=== PATIENT | female | born 1950 | race Caucasian/White ===

== ENCOUNTER 2019-03-17 18:21 | Observation (INO) | payer MEDICARE, BC ==
[2019-03-17] MEDS ORDERED: Sodium Chloride 0.9% 2.5 ML Syringe FLUSH PRN (18:44)
[2019-03-17] MEDS ORDERED: Sodium Chloride 0.9% 10 ML Syringe FLUSH PRN (18:44)
[2019-03-17] MEDS ORDERED: Sodium Chloride 0.9% 10 ML SDV IV PRN (18:44)
--- NOTE | 2019-03-17 19:07 | CT ---
INDICATION: NUMBNESS TO LEFT ARM CT HEAD WITHOUT CONTRAST TECHNIQUE: Multiple axial CT images were performed through the head without intravenous contrast administration. COMPARISON: No previous studies are currently available for comparison. FINDINGS: No acute intracranial hemorrhage is identified. No extra-axial collections are evident and there is no mass effect or midline shift. There is mild diffuse age-related brain atrophy. Ventricular size and configuration are within normal limits for the patient`s age. Rodrigues-white differentiation is within normal limits. There is patchy hypodensity in the periventricular white matter, a nonspecific finding which most likely reflects chronic small vessel ischemic change. Osseous structures are within normal limits and no fractures are seen. Included portions of the paranasal sinuses and mastoid air cells are normally aerated. IMPRESSION: 1. No acute intracranial abnormality identified. 2. Mild age-related brain atrophy and white matter hypodensity consistent with chronic small vessel ischemic change. Report called to Dr. Masterson at 6:57pm 03/17/2019. VALERIE YANCEY MD [facility] Dictated by: Leonel Yancey MD @ 03/17/2019 19:04:34 (Electronically Signed)
[2019-03-17 19:10] LABS: CHLORIDE,CL 104 mmol/L (98-107); SODIUM,NA 141 mmol/L (136-145)
--- NOTE | 2019-03-17 19:22 | EDM.PDOC ---
ED HPI GENERAL MEDICAL PROBLEM - General Chief Complaint: Neuro Symptoms/Deficits Stated Complaint: HARD TO BREATH Time Seen by Provider: 03/17/19 18:37 Source of Information: Reports: Patient, Family History Limitations: Reports: No Limitations - History of Present Illness INITIAL COMMENTS - FREE TEXT/NARRATIVE: HISTORY AND PHYSICAL: History of present illness: Patient is a 68-year-old female presents to the ED today with her daughter for concern of an episode of slurred speech and right arm tingling that occurred at about 5:30 this evening. Daughter states that she was talking to her and she began to slur her sentences. Patient states she was aware she was slurring her sentences but felt like she couldn't control it. Patient states she then felt felt a tingling down her right arm. Patient states she came to the emergency room shortly after the symptoms. Patient states while in the emergency room, her symptoms have completely resolved. She states at this time she no longer is experiencing tingling or numbness or any symptoms to express. Patient states she has a history of type 2 diabetes but denies any other health history. She denies any coronary artery event or any prior stroke. Last known time well was 1700. Patient denies fever, chills, chest pain, shortness of breath, or cough. Denies headache, neck stiff ness, change in vision, syncope, or near syncope. Denies nausea, vomiting, abdominal pain, diarrhea, constipation, or dysuria. Has not noted any blood in urine or stool. Patient has been eating and drinking appropriately. Review of systems: As per history of present illness and below otherwise all systems reviewed and negative. Past medical history: As per history of present illness and as reviewed below otherwise noncontributory. Surgical history: As per history of present illness and as reviewed below otherwise noncontributory. Social history: See social history for further information Family history: As per history of present illness and as reviewed below otherwise noncontributory. Physical exam: General: Patient is alert, oriented, and in no acute distress. Patient sitting comfortably on exam table. Patient is speaking full sentences without deficits. HEENT: Atraumatic, normocephalic, pupils equal and reactive bilaterally, negative for conjunctival pallor or scleral icterus, mucous membranes moist, TMs normal bilaterally, throat clear, neck supple, nontender, trachea midline. No drooling or trismus noted. No meningeal signs. No hot potato voice noted. Lungs: Clear to auscultation, breath sounds equal bilaterally, chest nontender. Heart: S1S2, regular rate and rhythm without overt murmur Abdomen: Soft, nondistended, nontender. Negative for masses or hepatosplenomegaly. Negative for costovertebral tenderness. Pelvis: Stable nontender. Genitourinary: Deferred. Rectal: Deferred. Skin: Intact, warm, dry. No lesions or rashes noted. Extremities: Atraumatic, negative for cords or calf pain. Neurovascular unremarkable. Neuro: Awake, alert, oriented. Cranial nerves II through XII unremarkable. Cerebellum unremarkable. Motor and sensory unremarkable throughout. Exam nonfocal. Notes: Stroke code was called upon arrival to the ED and Dr. Cerda involved in patient care. GCS 15. NIH score of 0. Dr. Simons was contacted on patient and will admit to observation. Voices understanding and is agreeable to plan of care. Denies any further questions or concerns at this time. Diagnostics: Head CT, CBC, CMP, PT/INR, APTT, UA, EKG Therapeutics: Saline lock Impression: TIA Plan: 1. Admit to observation to Dr. Simons. Definitive disposition and diagnosis as appropriate pending reevaluation and review of above. headache Pain Score (Numeric/FACES): 6 - Related Data Allergies Allergy/AdvReac Type Severity Reaction Status Date / Time rosuvastatin [From Crestor] Allergy Muscle Verified 03/17/19 18:52 Aches Sulfa (Sulfonamide Allergy pain in Verified 03/17/19 18:52 Antibiotics) lower extremities Home Meds: Home Meds DULoxetine HCl [Duloxetine HCl] 60 mg PO BID 09/22/18 [History] Levothyroxine Sodium [Synthroid] 75 mcg PO DAILY 09/22/18 [History] Losartan Potassium 50 mg PO DAILY 09/22/18 [History] Simvastatin [Zocor] 40 mg PO BEDTIME 09/22/18 [History] glipiZIDE [Glipizide ER] 5 mg PO DAILY 09/22/18 [History] metFORMIN HCl [Metformin HCl] 1,000 mg PO BID 09/22/18 [History] Doxycycline [Vibramycin] 100 mg PO BID 03/17/19 [History] Past Medical History HEENT History: Reports: Other (See Below) Other HEENT History: wears reading glasses Cardiovascular History: Reports: High Cholesterol, Hypertension Gastrointestinal History: Reports: Colon Polyp, GERD Other Gastrointestinal History: reflux in the past Genitourinary History: Reports: None 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: Musculoskeletal History: Reports: Arthritis, Back Pain, Chronic Neurological History: Reports: None Psychiatric History: Reports: Depression Endocrine/Metabolic History: Reports: Diabetes, Type II, Hypothyroidism, Obesity /BMI 30+ Oncologic (Cancer) History: Reports: Uterine - Infectious Disease History Infectious Disease History: Reports: Chicken Pox, Measles, Mumps - Past Surgical History Head Surgeries/Procedures: Reports: None HEENT Surgical History: Reports: Tonsillectomy Cardiovascular Surgical History: Reports: None GI Surgical History: Reports: Appendectomy, Cholecystectomy, Colonoscopy Female Surgical History: Reports: Hysterectomy, Salpingo-Oophorectomy Other Female Surgeries/Procedures: total abd hysterectomy with lymph node disection, uterine ca 2013 Endocrine Surgical History: Reports: None Neurological Surgical History: Reports: Lumbar Spine Other Neurological Surgeries/Procedures: hx back surgery Musculoskeletal Surgical History: Reports: Other (See Below) Other Musculoskeletal Surgeries/Procedures:: back surgery Social & Family History - Family History Family Medical History: Noncontributory - Tobacco Use Smoking Status *Q: Never Smoker Second Hand Smoke Exposure: No - Caffeine Use Caffeine Use: Reports: Soda - Recreational Drug Use Recreational Drug Use: No ED ROS GENERAL - Review of Systems Review Of Systems: ROS reveals no pertinent complaints other than HPI. ED EXAM, NEURO - Physical Exam Exam: See Below (See dictation) Course - Vital Signs Last Recorded V/S: Last Vital Signs Temp 35.9 C 03/17/19 18:46 Pulse 93 03/17/19 18:46 Resp 20 03/17/19 18:46 BP 162/93 H 03/17/19 18:46 Pulse Ox 95 03/17/19 18:46 - Orders/Labs/Meds Orders: Active Orders 24 hr Category Date Time Status Assess Neurological Status [RC] ASDIRECTED Care 03/17/19 18:44 Active Bedrest [RC] ASDIRECTED Care 03/17/19 18:44 Active Cardiac Monitoring [RC] . DIRECTED Care 03/17/19 18:44 Active EKG Documentation Completion [RC] STAT Care 03/17/19 18:41 Active EKG Documentation Completion [RC] STAT Care 03/17/19 18:44 Inactive EKG Documentation Completion [RC] STAT Care 03/17/19 18:46 Inactive Height and Weight [RC] UPON Care 03/17/19 18:44 Active Initiate Acute Stroke Protocol [RC] STAT Care 03/17/19 18:44 Active NIH Stroke Scale [RC] ASDIRECTED Care 03/17/19 18:44 Active Nursing Bedside Swallow Screen [RC] ASDIRECTED Care 03/17/19 18:44 Active Oxygen Therapy [RC] ASDIRECTED Care 03/17/19 18:44 Active Stroke Education, General [] Click to Edit Care 03/17/19 18:44 Active Vital Signs [RC] Q15M Care 03/17/19 18:44 Active UA W/MICROSCOPIC [URIN] Stat Lab 03/17/19 18:41 Ordered Sodium Chloride 0.9% [Normal Saline] Med 03/17/19 18:44 Active 10 ml IV ASDIRECTED PRN Sodium Chloride 0.9% [Saline Flush] Med 03/17/19 18:44 Active 10 ml FLUSH ASDIRECTED PRN Sodium Chloride 0.9% [Saline Flush] Med 03/17/19 18:44 Active 2.5 ml FLUSH ASDIRECTED PRN Peripheral IV Insertion Adult [OM.PC] Stat Oth 03/17/19 18:44 Ordered Peripheral IV Insertion Adult [OM.PC] Stat Oth 03/17/19 18:44 Ordered Medication Orders Sodium Chloride (Saline Flush) 10 ml FLUSH ASDIRECTED PRN PRN Reason: Keep Vein Open Sodium Chloride (Saline Flush) 2.5 ml FLUSH ASDIRECTED PRN PRN Reason: Keep Vein Open Sodium Chloride (Normal Saline) 10 ml IV ASDIRECTED PRN PRN Reason: IV Use Labs: Laboratory Tests 03/17/19 03/17/19 03/17/19 Range/Units 18:26 18:26 18:26 WBC 10.55 (4.0-11.0) K/uL RBC 4.95 (4.30-5.90) M/uL Hgb 15.7 (12.0-16.0) g/dL Hct 47.4 H (36.0-46.0) % MCV 95.8 (80.0-98.0) fL MCH 31.7 (27.0-32.0) pg MCHC 33.1 (31.0-37.0) g/dL RDW Std Deviation 45.6 (28.0-62.0) fl RDW Coeff of Justice 13 (11.0-15.0) % Plt Count 340 (150-400) K/uL MPV 10.30 (7.40-12.00) fL Neut % (Auto) 44.9 L (48.0-80.0) % Lymph % (Auto) 45.4 H (16.0-40.0) % Benzie % (Auto) 7.2 (0.0-15.0) % Eos % (Auto) 2.1 (0.0-7.0) % Baso % (Auto) 0.4 (0.0-1.5) % Neut # (Auto) 4.7 (1.4-5.7) K/uL Lymph # (Auto) 4.8 H (0.6-2.4) K/uL Benzie # (Auto) 0.8 (0.0-0.8) K/uL Eos # (Auto) 0.2 (0.0-0.7) K/uL Baso # (Auto) 0.0 (0.0-0.1) K/uL Nucleated RBC % 0.0 /100WBC Nucleated RBCs # 0 K/uL INR 0.93 APTT 25.4 (18.6-31.3) SEC Sodium 141 (136-145) mmol/L Potassium 3.5 (3.5-5.1) mmol/L Chloride 104 (98-107) mmol/L Carbon Dioxide 24.6 (21.0-32.0) mmol/L BUN 20 H (7.0-18.0) mg/dL Creatinine 1.2 H (0.6-1.0) mg/dL Est Cr Clr Drug Dosing 44.00 mL/min Estimated GFR (MDRD) 44.4 ml/min Glucose 104 (74-106) mg/dL Calcium 9.0 (8.5-10.1) mg/dL Total Bilirubin 0.9 (0.2-1.0) mg/dL AST 23 (15-37) IU/L ALT 30 (14-63) IU/L Alkaline Phosphatase 104 (46-116) U/L Troponin I < 0.050 (0.000-0.056) ng/mL Total Protein 7.6 (6.4-8.2) g/dL Albumin 3.8 (3.4-5.0) g/dL Globulin 3.8 (2.6-4.0) g/dL Albumin/Globulin Ratio 1.0 (0.9-1.6) TSH 3rd Generation 2.35 (0.36-3.74) uIU/mL Meds: Medications Generic Name Dose Route Start Last Admin Trade Name Freq PRN Reason Stop Dose Admin Sodium Chloride 10 ml 03/17/19 18:44 Saline Flush FLUSH ASDIRECTED PRN Keep Vein Open Sodium Chloride 2.5 ml 03/17/19 18:44 Saline Flush FLUSH ASDIRECTED PRN Keep Vein Open Sodium Chloride 10 ml 03/17/19 18:44 Normal Saline IV ASDIRECTED PRN IV Use Departure - Departure Time of Disposition: 19:22 Disposition: Refer to Observation Clinical Impression: TIA (transient ischemic attack) - Discharge Information
[2019-03-17] MEDS ORDERED: Ondansetron 4 MG/2 ML SDV IVPUSH ONE (19:34)
--- NOTE | 2019-03-17 22:59 | PCM.HP ---
H&P History of Present Illness - General Date of Service: 03/17/19 Admit Problem/Dx: Admission Diagnosis/Problem Admission Diagnosis/Problem TIA, Transient ischemic attack - History of Present Illness Initial Comments - Free Text/Narative: 68 yo female with pmh of DM and hypertension who presents to the ED with complain of right arm numbness and slurred speech. It occured arround 5:30. PAtient reports her arm felt puffy but she had no weakness. She reports she was able to speak but family members could not understand her. Once she got to the ED her symptoms resolved headache Pain Score (Numeric/FACES): 3 - Related Data Allergies/Adverse Reactions: Allergies Allergy/AdvReac Type Severity Reaction Status Date / Time rosuvastatin [From Crestor] Allergy Muscle Verified 03/17/19 18:52 Aches Sulfa (Sulfonamide Allergy pain in Verified 03/17/19 18:52 Antibiotics) lower extremities Home Medications: Home Meds DULoxetine HCl [Duloxetine HCl] 60 mg PO BID 09/22/18 [History] Levothyroxine Sodium [Synthroid] 75 mcg PO DAILY 09/22/18 [History] Losartan Potassium 50 mg PO DAILY 09/22/18 [History] Simvastatin [Zocor] 40 mg PO BEDTIME 09/22/18 [History] glipiZIDE [Glipizide ER] 5 mg PO DAILY 09/22/18 [History] metFORMIN HCl [Metformin HCl] 1,000 mg PO BID 09/22/18 [History] Doxycycline [Vibramycin] 100 mg PO BID 03/17/19 [History] Dulaglutide [Trulicity] 0.75 mg SQ WEEKLY 03/17/19 [History] Insulin Degludec [Tresiba] 24 unit SQ BEDTIME 03/17/19 [History] Aspirin 81 mg PO DAILY #30 tab.chew 03/18/19 [Rx] Past Medical History HEENT History: Reports: Other (See Below) Other HEENT History: wears reading glasses Cardiovascular History: Reports: High Cholesterol, Hypertension Gastrointestinal History: Reports: Colon Polyp, GERD Other Gastrointestinal History: reflux in the past Genitourinary History: Reports: None 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: Musculoskeletal History: Reports: Arthritis, Back Pain, Chronic Neurological History: Reports: None Psychiatric History: Reports: Depression Endocrine/Metabolic History: Reports: Diabetes, Type II, Hypothyroidism, Obesity /BMI 30+ Oncologic (Cancer) History: Reports: Uterine - Infectious Disease History Infectious Disease History: Reports: Chicken Pox, Measles, Mumps - Past Surgical History Head Surgeries/Procedures: Reports: None HEENT Surgical History: Reports: Tonsillectomy Cardiovascular Surgical History: Reports: None GI Surgical History: Reports: Appendectomy, Cholecystectomy, Colonoscopy Female Surgical History: Reports: Hysterectomy, Salpingo-Oophorectomy Other Female Surgeries/Procedures: total abd hysterectomy with lymph node disection, uterine ca 2013 Endocrine Surgical History: Reports: None Neurological Surgical History: Reports: Lumbar Spine Other Neurological Surgeries/Procedures: hx back surgery Musculoskeletal Surgical History: Reports: Other (See Below) Other Musculoskeletal Surgeries/Procedures:: back surgery Social & Family History - Family History Family Medical History: Noncontributory - Tobacco Use Smoking Status *Q: Never Smoker Second Hand Smoke Exposure: No - Caffeine Use Caffeine Use: Reports: Coffee - Recreational Drug Use Recreational Drug Use: No H&P Review of Systems - Review of Systems: Review Of Systems: ROS reveals no pertinent complaints other than HPI. Exam - Exam Exam: See Below - Vital Signs Vital Signs: Last Vital Signs Temp 36.3 C 03/17/19 19:50 Pulse 81 03/17/19 19:50 Resp 19 03/17/19 19:50 BP 189/90 H 03/17/19 19:50 Pulse Ox 96 03/17/19 19:50 Weight: 107.774 kg - Exam General: Alert, Oriented HEENT: Mucosa Moist & [place] Neck: Supple Lungs: Clear to Auscultation, Normal Respiratory Effort Cardiovascular: Regular Rate, Regular Rhythm GI/Abdominal Exam: Normal Bowel Sounds, Soft, Non-Tender, No Distention Extremities: Non-Tender, No Pedal Edema Skin: Warm, Dry, Intact Neurological: Cranial Nerves Intact, Reflexes Equal Bilateral, Strength Equal Bilateral, Normal Speech, Normal Tone, Sensation Intact. No: Focal Deficit - Patient Data Lab Results Last 24 hrs: Laboratory Results - last 24 hr 03/17/19 03/17/19 03/17/19 Range/Units 18:26 18:26 18:26 WBC 10.55 (4.0-11.0) K/uL RBC 4.95 (4.30-5.90) M/uL Hgb 15.7 (12.0-16.0) g/dL Hct 47.4 H (36.0-46.0) % MCV 95.8 (80.0-98.0) fL MCH 31.7 (27.0-32.0) pg MCHC 33.1 (31.0-37.0) g/dL RDW Std Deviation 45.6 (28.0-62.0) fl RDW Coeff of Justice 13 (11.0-15.0) % Plt Count 340 (150-400) K/uL MPV 10.30 (7.40-12.00) fL Neut % (Auto) 44.9 L (48.0-80.0) % Lymph % (Auto) 45.4 H (16.0-40.0) % Nobles % (Auto) 7.2 (0.0-15.0) % Eos % (Auto) 2.1 (0.0-7.0) % Baso % (Auto) 0.4 (0.0-1.5) % Neut # (Auto) 4.7 (1.4-5.7) K/uL Lymph # (Auto) 4.8 H (0.6-2.4) K/uL [place] # (Auto) 0.8 (0.0-0.8) K/uL Eos # (Auto) 0.2 (0.0-0.7) K/uL Baso # (Auto) 0.0 (0.0-0.1) K/uL Nucleated RBC % 0.0 /100WBC Nucleated RBCs # 0 K/uL INR 0.93 APTT 25.4 (18.6-31.3) SEC Sodium 141 (136-145) mmol/L Potassium 3.5 (3.5-5.1) mmol/L Chloride 104 (98-107) mmol/L Carbon Dioxide 24.6 (21.0-32.0) mmol/L BUN 20 H (7.0-18.0) mg/dL Creatinine 1.2 H (0.6-1.0) mg/dL Est Cr Clr Drug Dosing 44.00 mL/min Estimated GFR (MDRD) 44.4 ml/min Glucose 104 (74-106) mg/dL Calcium 9.0 (8.5-10.1) mg/dL Total Bilirubin 0.9 (0.2-1.0) mg/dL AST 23 (15-37) IU/L ALT 30 (14-63) IU/L Alkaline Phosphatase 104 (46-116) U/L Troponin I < 0.050 (0.000-0.056) ng/mL Total Protein 7.6 (6.4-8.2) g/dL Albumin 3.8 (3.4-5.0) g/dL Globulin 3.8 (2.6-4.0) g/dL Albumin/Globulin Ratio 1.0 (0.9-1.6) TSH 3rd Generation 2.35 (0.36-3.74) uIU/mL Result Diagrams: 03/17/19 18:26 03/17/19 18:26 Problem List Initiated/Reviewed/Updated: Yes Orders Last 24hrs: Active Orders 24 hr Category Date Time Status Admission Status [Patient Status] [ADT] Stat ADT 03/17/19 19:22 Active Blood Glucose Check, Bedside [RC] TIDAC Care 03/17/19 22:49 Ordered Cardiac Monitoring [RC] . DIRECTED Care 03/17/19 18:44 Active EKG Documentation Completion [RC] STAT Care 03/17/19 18:44 Inactive EKG Documentation Completion [RC] STAT Care 03/17/19 18:46 Inactive Oxygen Therapy [RC] PRN Care 03/17/19 22:46 Ordered Up ad Vandana [RC] ASDIRECTED Care 03/17/19 22:46 Ordered VTE/DVT Education [RC] PER UNIT ROUTINE Care 03/17/19 22:46 Ordered Vital Signs [RC] Q4H Care 03/17/19 22:46 Ordered [place] [employer] Diet [DIET] Diet 03/17/19 Breakfast Ordered Ang Head wo Cont [MR] Routine Exams 03/17/19 22:48 Ordered Ang Neck wo Cont [MR] Routine Exams 03/17/19 22:48 Ordered Brain w wo Cont [MR] Routine Exams 03/17/19 22:48 Ordered UA W/MICROSCOPIC [URIN] Stat Lab 03/17/19 18:41 Ordered DULoxetine [Cymbalta] Med 03/18/19 09:00 Ordered 60 mg PO BID Insulin Aspart [NovoLOG] Med 03/18/19 07:30 Ordered See Protocol SUBCUT TIDAC Levothyroxine Med 03/18/19 09:00 Ordered 75 mcg PO DAILY Simvastatin [Zocor] Med 03/18/19 21:00 Ordered 40 mg PO BEDTIME Sodium Chloride 0.9% [Normal Saline] Med 03/17/19 18:44 Active 10 ml IV ASDIRECTED PRN Sodium Chloride 0.9% [Saline Flush] Med 03/17/19 18:44 Active 10 ml FLUSH ASDIRECTED PRN Sodium Chloride 0.9% [Saline Flush] Med 03/17/19 18:44 Active 2.5 ml FLUSH ASDIRECTED PRN glipiZIDE Med 03/18/19 09:00 Ordered 5 mg PO DAILY metFORMIN HCl [Metformin HCl] Med 03/18/19 09:00 Ordered 1,000 mg PO BID Peripheral IV Insertion Adult [OM.PC] Stat Oth 03/17/19 18:44 Ordered Peripheral IV Insertion Adult [OM.PC] Stat Oth 03/17/19 18:44 Ordered Resuscitation Status Routine Resus Stat 03/17/19 22:46 Ordered Medication Orders Duloxetine HCl (Cymbalta) 60 mg PO BID CHER Levothyroxine Sodium (Levothyroxine) 75 mcg PO DAILY CHER Non-Formulary Medication (Glipizide) 5 mg PO DAILY CHER Non-Formulary Medication (Metformin Hcl [Metformin Hcl]) 1,000 mg PO BID CHER Simvastatin (Zocor) 40 mg PO BEDTIME CHER Sodium Chloride (Saline Flush) 10 ml FLUSH ASDIRECTED PRN PRN Reason: Keep Vein Open Sodium Chloride (Saline Flush) 2.5 ml FLUSH ASDIRECTED PRN PRN Reason: Keep Vein Open Sodium Chloride (Normal Saline) 10 ml IV ASDIRECTED PRN PRN Reason: IV Use Assessment/Plan Comment:: 68 yo female admitted with TIA symptoms. We will further work up with MRI brain and place on telemetry overnight.
[2019-03-18] MEDS ORDERED: Insulin Glargine,Human Rec. Analog 100 Units/ML 3 ML Pen SUBCUT SCH ×2 (00:54→21:00)
[2019-03-18] MEDS ORDERED: Acetaminophen 325 MG Tab PO PRN (00:54)
[2019-03-18] MEDS: Insulin Aspart 100 Units/ML 3 ML Pen SUBCUT SCH ×2 (06:42→12:35)
[2019-03-18] MEDS ORDERED: Levothyroxine 75 MCG Tab PO SCH (07:00)
[2019-03-18] MEDS: metFORMIN 500 MG Tab PO SCH ×2 (08:31→12:34)
[2019-03-18] MEDS ORDERED: DULoxetine 60 MG Cap PO SCH (09:00)
[2019-03-18] MEDS ORDERED: glipiZIDE 5 MG Tab.ER PO SCH (09:00)
[2019-03-18] MEDS ORDERED: Losartan 50 MG Tab PO SCH (09:00)
[2019-03-18 09:47] LABS: HEMOGLOBIN A1C 7.7 % (4.5-6.2)
--- NOTE | 2019-03-18 11:00 | MR ---
Examination: MR of the head without contrast, MRA head and neck without contrast. Technique: Multiplanar multisequence imaging of the head without intravenous contrast. Diffusion weighted sequences were performed. [id number] imaging obtained through the head and neck with MIP reconstructions. HISTORY: TIA. FINDINGS: MRI head: The cerebral hemispheres and deep nuclei are without hemorrhage, mass, edema or atrophy. Small T2 FLAIR hyperintensities in the white matter likely small areas of chronic ischemia. No evidence for restricted diffusion. No extraaxial collections or hemorrhage. The ventricular system is of normal size and configuration without hydrocephalus. The brainstem and cerebellum are without hemorrhage, mass, edema, gliosis or atrophy. Carotid basilar artery flow voids are intact. The otomastoid airspaces are clear. No internal auditory canal or cerebellopontine angle masses. The paranasal sinuses are clear. The craniocervical junction is unremarkable. MRA head: The distal internal carotid arteries appear grossly normal without notable atheromatous changes. The distal vertebral basilar system also appears normal with loss of signal of the distal vertebral arteries due to tortuosity. 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 The right posterior communicating artery is unremarkable. The anterior communicating artery is normal. The anterior and middle cerebral arteries appear normal. No significant stenosis or aneurysm identified. MRA neck: Common carotid arteries appear patent. The left vertebral artery as slightly dominant. Minimal atheromatous narrowing noted within the internal carotid arteries proximally without significant stenosis. IMPRESSION: 1. No evidence of an acute intracranial finding or infarct. 2. Mild small vessel ischemic changes. 3. Grossly unremarkable intra and extracranial arterial circulation.
--- NOTE | 2019-03-18 11:26 | PCM.DCSUM1 ---
Discharge Summary - Hospital Course Brief History: 68 yo female with pmh of DM and hypertension who presents to the ED with complain of right arm numbness and slurred speech. It occured arround 5 :30. PAtient reports her arm felt puffy but she had no weakness. She reports she was able to speak but family members could not understand her. Once she got to the ED her symptoms resolved Diagnosis: Stroke: No - Discharge Data Discharge Date: 03/18/19 Discharge Disposition: Home, Self-Care 01 Condition: Good - Patient Instructions Diet: Heart Healthy Diet, Diabetic Diet Activity: As Tolerated Driving: Do Not Drive Showering/Bathing: March Shower Notify Provider of: Fever, Increased Pain, Swelling and Redness, Drainage, Nausea and/or Vomiting - Discharge Plan *PRESCRIPTION DRUG MONITORING PROGRAM REVIEWED*: Not Applicable *COPY OF PRESCRIPTION DRUG MONITORING REPORT IN PATIENT MK: Not Applicable Prescriptions/Med Rec: Aspirin 81 mg PO DAILY #30 tab.[email or web address] Home Medications: Home Meds DULoxetine HCl [Duloxetine HCl] 60 mg PO BID 09/22/18 [History] Levothyroxine Sodium [Synthroid] 75 mcg PO DAILY 09/22/18 [History] Losartan Potassium 50 mg PO DAILY 09/22/18 [History] Simvastatin [Zocor] 40 mg PO BEDTIME 09/22/18 [History] glipiZIDE [Glipizide ER] 5 mg PO DAILY 09/22/18 [History] metFORMIN HCl [Metformin HCl] 1,000 mg PO BID 09/22/18 [History] Doxycycline [Vibramycin] 100 mg PO BID 03/17/19 [History] Dulaglutide [Trulicity] 0.75 mg SQ WEEKLY 03/17/19 [History] Insulin Degludec [Tresiba] 24 unit SQ BEDTIME 03/17/19 [History] Aspirin 81 mg PO DAILY #30 tab.chew 03/18/19 [Rx] Oxygen Therapy Mode: Room Air Patient Handouts: Transient Ischemic Attack, [id number], Aspirin, ASA oral tablets Referrals: Tae Medina MD [Physician] - 03/30/19 10:00 am - Discharge Summary/Plan Comment DC Time >30 min.: No Discharge Summary/Plan Comment: Admitting Diagnoses: TIA Discharge Diagnoses TIA Other PMH DM Type 2 HTN Obesity Dyslipidemia Tracey was admitted and monitored after suspected TIA like symptoms. She had no return of symptoms overnight. She was monitored on telemetry for arrhythmia, which none were noted. VS have been stable. BP well controlled as well as blood sugars. This morning Lipid panel and A1c checked to monitor for good control with TIA like symptoms. A1c 7.7, which is improved from pervious at 8.8. Cholesterol 135, LDL 52, HDL 58and triglycerides 124. No changes to statin or Diabetic medications. She was encouraged to continue with life style change to help with BS control. MRI of brain and MRA of head and neck were obtained this morning, this revealed no evidence of an acute intracranial finding or infarct, mild small vessel ischemic changes, grossly unremarkable intra and extracranial arterial circulation. She was instructed to start taking an aspirin daily. TIA is suspected and she was encouraged to keep life style up to prevent further TIAs and CVA. She will be discharged home today with follow up with PCP next week. She is to return to ED or clinic if concerns should arise. - General Info Date of Service: 03/18/19 Admission Dx/Problem (Free Text: Admission Diagnosis/Problem Admission Diagnosis/Problem TIA, Transient ischemic attack Subjective Update: Alert and oriented, no concerns this morning. No reoccurrence of symptoms. No headache. Feels well. No Chest pain or SOB. Functional Status: Reports: Pain Controlled, Tolerating Diet, Ambulating, Urinating - Review of Systems General: Reports: No Symptoms. Denies: Fever, Weakness, Fatigue Pulmonary: Reports: No Symptoms. Denies: Shortness of Breath Cardiovascular: Reports: No Symptoms. Denies: Chest Pain Gastrointestinal: Reports: No Symptoms. Denies: Abdominal Pain, Nausea, Vomiting Genitourinary: Reports: No Symptoms. Denies: Dysuria, Frequency, Burning Musculoskeletal: Reports: No Symptoms Skin: Reports: No Symptoms Neurological: Reports: No Symptoms Psychiatric: Reports: No Symptoms - Patient Data Vitals - Most Recent: Last Vital Signs Temp 96.8 F 03/18/19 06:55 Pulse 74 03/18/19 06:55 Resp 16 03/18/19 06:55 BP 130/58 L 03/18/19 06:55 Pulse Ox 95 03/18/19 06:55 Weight - Most Recent: 107.774 kg I&O - Last 24 hours: Intake & Output 03/17/19 03/18/19 03/18/19 22:59 06:59 14:59 Intake Total 300 Output Total 600 Balance -300 Lab Results - Last 24 hrs: Laboratory Results - last 24 hr 03/17/19 03/17/19 03/17/19 Range/Units 18:26 18:26 18:26 WBC 10.55 (4.0-11.0) K/uL RBC 4.95 (4.30-5.90) M/uL Hgb 15.7 (12.0-16.0) g/dL Hct 47.4 H (36.0-46.0) % MCV 95.8 (80.0-98.0) fL MCH 31.7 (27.0-32.0) pg MCHC 33.1 (31.0-37.0) g/dL RDW Std Deviation 45.6 (28.0-62.0) fl RDW Coeff of Justice 13 (11.0-15.0) % Plt Count 340 (150-400) K/uL MPV 10.30 (7.40-12.00) fL Neut % (Auto) 44.9 L (48.0-80.0) % Lymph % (Auto) 45.4 H (16.0-40.0) % Lipscomb % (Auto) 7.2 (0.0-15.0) % Eos % (Auto) 2.1 (0.0-7.0) % Baso % (Auto) 0.4 (0.0-1.5) % Neut # (Auto) 4.7 (1.4-5.7) K/uL Lymph # (Auto) 4.8 H (0.6-2.4) K/uL Lipscomb # (Auto) 0.8 (0.0-0.8) K/uL Eos # (Auto) 0.2 (0.0-0.7) K/uL Baso # (Auto) 0.0 (0.0-0.1) K/uL Nucleated RBC % 0.0 /100WBC Nucleated RBCs # 0 K/uL INR 0.93 APTT 25.4 (18.6-31.3) SEC Sodium 141 (136-145) mmol/L Potassium 3.5 (3.5-5.1) mmol/L Chloride 104 (98-107) mmol/L Carbon Dioxide 24.6 (21.0-32.0) mmol/L BUN 20 H (7.0-18.0) mg/dL Creatinine 1.2 H (0.6-1.0) mg/dL Est Cr Clr Drug Dosing 44.00 mL/min Estimated GFR (MDRD) 44.4 ml/min Glucose 104 (74-106) mg/dL POC Glucose (60-110) mg/dL Hemoglobin A1c (4.5-6.2) % Calcium 9.0 (8.5-10.1) mg/dL Total Bilirubin 0.9 (0.2-1.0) mg/dL AST 23 (15-37) IU/L ALT 30 (14-63) IU/L Alkaline Phosphatase 104 (46-116) U/L Troponin I < 0.050 (0.000-0.056) ng/mL Total Protein 7.6 (6.4-8.2) g/dL Albumin 3.8 (3.4-5.0) g/dL Globulin 3.8 (2.6-4.0) g/dL Albumin/Globulin Ratio 1.0 (0.9-1.6) Triglycerides (0-200) mg/dL Cholesterol (50-200) mg/dL LDL Cholesterol, Calc (60-180) mg/dL VLDL Cholesterol (5-55) mg/dL HDL Cholesterol (40-60) mg/dL Cholesterol/HDL Ratio (3.3-6.0) TSH 3rd Generation 2.35 (0.36-3.74) uIU/mL Urine Color Urine Appearance Urine pH (5.0-8.0) Ur Specific [place] (1.001-1.035) Urine Protein (NEGATIVE) mg/dL Urine Glucose (UA) (NEGATIVE) mg/dL Urine Ketones (NEGATIVE) mg/dL Urine Occult Blood (NEGATIVE) Urine Nitrite (NEGATIVE) Urine Bilirubin (NEGATIVE) Urine Urobilinogen (<2.0) EU/dL Ur Leukocyte Esterase (NEGATIVE) Urine RBC (0-2/HPF) Urine WBC (0-5/HPF) Ur Epithelial Cells (NONE-FEW) Urine Bacteria (NEGATIVE) 03/17/19 03/18/19 03/18/19 Range/Units 23:00 00:45 06:01 WBC (4.0-11.0) K/uL RBC (4.30-5.90) M/uL Hgb (12.0-16.0) g/dL Hct (36.0-46.0) % MCV (80.0-98.0) fL MCH (27.0-32.0) pg MCHC (31.0-37.0) g/dL RDW Std Deviation (28.0-62.0) fl RDW Coeff of Justice (11.0-15.0) % Plt Count (150-400) K/uL MPV (7.40-12.00) fL Neut % (Auto) (48.0-80.0) % Lymph % (Auto) (16.0-40.0) % Lipscomb % (Auto) (0.0-15.0) % Eos % (Auto) (0.0-7.0) % Baso % (Auto) (0.0-1.5) % Neut # (Auto) (1.4-5.7) K/uL Lymph # (Auto) (0.6-2.4) K/uL Lipscomb # (Auto) (0.0-0.8) K/uL Eos # (Auto) (0.0-0.7) K/uL Baso # (Auto) (0.0-0.1) K/uL Nucleated RBC % /100WBC Nucleated RBCs # K/uL INR APTT (18.6-31.3) SEC Sodium (136-145) mmol/L Potassium (3.5-5.1) mmol/L Chloride (98-107) mmol/L Carbon Dioxide (21.0-32.0) mmol/L BUN (7.0-18.0) mg/dL Creatinine (0.6-1.0) mg/dL Est Cr Clr Drug Dosing mL/min Estimated GFR (MDRD) ml/min Glucose (74-106) mg/dL POC Glucose 191 H 163 H (60-110) mg/dL Hemoglobin A1c (4.5-6.2) % Calcium (8.5-10.1) mg/dL Total Bilirubin (0.2-1.0) mg/dL AST (15-37) IU/L ALT (14-63) IU/L Alkaline Phosphatase (46-116) U/L Troponin I (0.000-0.056) ng/mL Total Protein (6.4-8.2) g/dL Albumin (3.4-5.0) g/dL Globulin (2.6-4.0) g/dL Albumin/Globulin Ratio (0.9-1.6) Triglycerides (0-200) mg/dL Cholesterol (50-200) mg/dL LDL Cholesterol, Calc (60-180) mg/dL VLDL Cholesterol (5-55) mg/dL HDL Cholesterol (40-60) mg/dL Cholesterol/HDL Ratio (3.3-6.0) TSH 3rd Generation (0.36-3.74) uIU/mL Urine Color YELLOW Urine Appearance CLEAR Urine pH 5.5 (5.0-8.0) Ur Specific [place] >= 1.030 (1.001-1.035) Urine Protein NEGATIVE (NEGATIVE) mg/dL Urine Glucose (UA) 100 H (NEGATIVE) mg/dL Urine Ketones TRACE H (NEGATIVE) mg/dL Urine Occult Blood NEGATIVE (NEGATIVE) Urine Nitrite NEGATIVE (NEGATIVE) Urine Bilirubin NEGATIVE (NEGATIVE) Urine Urobilinogen 0.2 (<2.0) EU/dL Ur Leukocyte Esterase NEGATIVE (NEGATIVE) Urine RBC 0-1 (0-2/HPF) Urine WBC 0-1 (0-5/HPF) Ur Epithelial Cells RARE (NONE-FEW) Urine Bacteria RARE (NEGATIVE) 03/18/19 03/18/19 Range/Units 08:35 08:35 WBC (4.0-11.0) K/uL RBC (4.30-5.90) M/uL Hgb (12.0-16.0) g/dL Hct (36.0-46.0) % MCV (80.0-98.0) fL MCH (27.0-32.0) pg MCHC (31.0-37.0) g/dL RDW Std Deviation (28.0-62.0) fl RDW Coeff of Justice (11.0-15.0) % Plt Count (150-400) K/uL MPV (7.40-12.00) fL Neut % (Auto) (48.0-80.0) % Lymph % (Auto) (16.0-40.0) % Lipscomb % (Auto) (0.0-15.0) % Eos % (Auto) (0.0-7.0) % Baso % (Auto) (0.0-1.5) % Neut # (Auto) (1.4-5.7) K/uL Lymph # (Auto) (0.6-2.4) K/uL Lipscomb # (Auto) (0.0-0.8) K/uL Eos # (Auto) (0.0-0.7) K/uL Baso # (Auto) (0.0-0.1) K/uL Nucleated RBC % /100WBC Nucleated RBCs # K/uL INR APTT (18.6-31.3) SEC Sodium (136-145) mmol/L Potassium (3.5-5.1) mmol/L Chloride (98-107) mmol/L Carbon Dioxide (21.0-32.0) mmol/L BUN (7.0-18.0) mg/dL Creatinine (0.6-1.0) mg/dL Est Cr Clr Drug Dosing mL/min Estimated GFR (MDRD) ml/min Glucose (74-106) mg/dL POC Glucose (60-110) mg/dL Hemoglobin A1c 7.7 H (4.5-6.2) % Calcium (8.5-10.1) mg/dL Total Bilirubin (0.2-1.0) mg/dL AST (15-37) IU/L ALT (14-63) IU/L Alkaline Phosphatase (46-116) U/L Troponin I (0.000-0.056) ng/mL Total Protein (6.4-8.2) g/dL Albumin (3.4-5.0) g/dL Globulin (2.6-4.0) g/dL Albumin/Globulin Ratio (0.9-1.6) Triglycerides 124 (0-200) mg/dL Cholesterol 135 (50-200) mg/dL LDL Cholesterol, Calc 52 L (60-180) mg/dL VLDL Cholesterol 24 (5-55) mg/dL HDL Cholesterol 58 (40-60) mg/dL Cholesterol/HDL Ratio 2.3 L (3.3-6.0) TSH 3rd Generation (0.36-3.74) uIU/mL Urine Color Urine Appearance Urine pH (5.0-8.0) Ur Specific [place] (1.001-1.035) Urine Protein (NEGATIVE) mg/dL Urine Glucose (UA) (NEGATIVE) mg/dL Urine Ketones (NEGATIVE) mg/dL Urine Occult Blood (NEGATIVE) Urine Nitrite (NEGATIVE) Urine Bilirubin (NEGATIVE) Urine Urobilinogen (<2.0) EU/dL Ur Leukocyte Esterase (NEGATIVE) Urine RBC (0-2/HPF) Urine WBC (0-5/HPF) Ur Epithelial Cells (NONE-FEW) Urine Bacteria (NEGATIVE) Med Orders - Current: Current Medications Acetaminophen (Tylenol) 650 mg PO Q6H PRN PRN Reason: Pain Duloxetine HCl (Cymbalta) 60 mg PO BID [facility] Last Admin: 03/18/19 08:31 Dose: 60 mg Glipizide (Glucotrol Xl) 5 mg PO DAILY [facility] Last Admin: 03/18/19 08:31 Dose: 5 mg Insulin Aspart (Novolog) 0 unit SUBCUT TIDAC [facility]; Protocol Last Admin: 03/18/19 06:42 Dose: 1 unit Insulin Glargine (Lantus Solostar) 10 units SUBCUT BEDTIME [facility] Levothyroxine Sodium (Levothyroxine) 75 mcg PO DAILY@0700 [facility] Last Admin: 03/18/19 06:42 Dose: 75 mcg Metformin HCl (Glucophage) 1,000 mg PO BID [facility] Last Admin: 03/18/19 08:31 Dose: Not Given Simvastatin (Zocor) 40 mg PO BEDTIME [facility] Sodium Chloride (Saline Flush) 10 ml FLUSH ASDIRECTED PRN PRN Reason: Keep Vein Open Sodium Chloride (Saline Flush) 2.5 ml FLUSH ASDIRECTED PRN PRN Reason: Keep Vein Open Sodium Chloride (Normal Saline) 10 ml IV ASDIRECTED PRN PRN Reason: IV Use Discontinued Medications Insulin Glargine (Lantus Solostar) 0 units SUBCUT BEDTIME [facility] Last Admin: 03/18/19 01:10 Dose: 10 unit Losartan Potassium (Cozaar) 50 mg PO DAILY [facility] Ondansetron HCl (Zofran) 4 mg IVPUSH ONETIME ONE Stop: 03/17/19 19:35 Last Admin: 03/17/19 20:09 Dose: Not Given - Exam General: Reports: Alert, Oriented, Cooperative Neck: Reports: Supple Lungs: Reports: Clear to Auscultation, Normal Respiratory Effort Cardiovascular: Reports: Regular Rate, Regular Rhythm GI/Abdominal Exam: Normal Bowel Sounds, Soft, Non-Tender Back Exam: Reports: Normal Inspection, Full Range of Motion Extremities: Normal Inspection, Normal Range of Motion, Non-Tender Neurological: Reports: No New Focal Deficit Psy/Mental Status: Reports: Alert, Normal Affect, Normal Mood
[2019-03-18] MEDS ORDERED: Simvastatin 40 MG Tab PO SCH (21:00)
== END 2019-03-18 15:26 | disposition home or self-care (01) ==
LOC: MW.ED 18:21 → MW.MS 19:50
PROVIDERS: ADMIT Internal Medicine; ATTEND Internal Medicine
DX: G45.9 Transient cerebral ischemic attack, unspecified (principal); E11.9 Type 2 diabetes mellitus without complications; E78.5 Hyperlipidemia, unspecified; K21.9 Gastro-esophageal reflux disease without esophagitis; E66.9 Obesity, unspecified; Z68.36 Body mass index [BMI] 36.0-36.9, adult; Z79.84 Long term (current) use of oral hypoglycemic drugs; Z79.899 Other long term (current) drug therapy; Z88.2 Allergy status to sulfonamides; Z88.8 Allergy status to other drugs, medicaments and biological substances
CPT/HCPCS: 36415; 70450; 70544; 70547; 70551; 80053; 80061; 81001; 82962; 83036; 84443; 84484; 85025; 85610; 85730; 93005; 99285; A9270; G0378; J1815

== ENCOUNTER 2020-08-27 15:10 | Emergency (ER) | payer MEDICARE, BC ==
[2020-08-27] MEDS ORDERED: Prochlorperazine 10 MG/2 ML SDV IVPUSH ONE (15:37)
[2020-08-27] MEDS ORDERED: methylPREDNISolone Sodium Succinate 125 MG/2 ML SDV IVPUSH ONE (15:37)
[2020-08-27] MEDS ORDERED: Lactated Ringers 1,000 ML IV ONE (15:37)
[2020-08-27 16:22] LABS: BLOOD UREA NITROGEN,BUN 19 mg/dL (7.0-18.0); CARBON DIOXIDE,CO2 24.3 mmol/L (21.0-32.0); CHLORIDE,CL 103 mmol/L (98-107); GLUCOSE RANDOM 130 mg/dL (74-106); POTASSIUM,K 3.9 mmol/L (3.5-5.1); SODIUM,NA 137 mmol/L (136-145)
--- NOTE | 2020-08-27 16:31 | EDM.PDOC ---
ED [facility] GENERAL MEDICAL PROBLEM - General Chief Complaint: Neuro Symptoms/Deficits Stated Complaint: OFF BALANCE Time Seen by Provider: 08/27/20 15:11 Source of Information: Reports: Patient - History of Present Illness INITIAL COMMENTS - FREE TEXT/NARRATIVE: HISTORY AND PHYSICAL: History of present illness: This 70-year-old female with a past medical history of diabetes mellitus, hypertension, hyperlipidemia presents to the emergency department complaining of headache. She has had a headache for the last 3 weeks, it is been in the sinus area and back of the head. It is throbbing and rated 9/10. No pain with range of motion of the neck. Denies fever. No visual disturbances. No cough. No neck stiffness. Recently had a head CT with her primary care doctor looking for signs of stroke and labs. These were read as negative per the patient's report. The patient has had some nausea and has vomited yesterday and felt not very nauseated this morning. No urinary symptoms. She did have a significant fall and her headache acutely worsened. This was about 2 weeks ago. Review of systems: A 10-point review of systems, other than pertinent positives and negatives as stated per HPI, is otherwise negative. Past medical history: As per history of present illness and as reviewed below otherwise noncontributory. Surgical history: As per history of present illness and as reviewed below otherwise noncontributory. Social history: No reported history of drug or alcohol abuse. Family history: As per history of present illness and as reviewed below otherwise noncontributory. Physical exam: VITAL SIGNS: Reviewed. GENERAL: Appears to be in acute pain but is nontoxic appearing HEAD: No signs of head trauma. EYES: Pupils are equal. Extraocular motions intact. EARS: Hearing grossly intact. MOUTH: Oropharynx is normal. NECK: No adenopathy, no JVD. Supple, full range of motion without meningeal signs. CHEST: Chest with clear breath sounds bilaterally. No wheezes, rales, or rh onchi. CARDIAC: Regular rate and rhythm. Normal S1 and S2, without murmurs, gallops, or rubs. VASCULAR: Peripheral pulses normal and equal in all extremities. ABDOMEN: Soft, without detectable tenderness. No sign of distention. No rebound or guarding, and no masses palpated. MUSCULOSKELETAL: Good range of motion of all major joints. Extremities without clubbing, cyanosis or edema. NEUROLOGIC EXAM: Alert and oriented x 3. No focal sensory or motor deficits. Speech normal. Follows commands. No nerves II through XII are intact. Normal gait when she ambulates PSYCHIATRIC: Mood normal. SKIN: No rash or lesions. Initial Differential Diagnosis & Plan: Differential diagnosis includes meningitis, subarachnoid hemorrhage, trauma, mass lesion, carbon dioxide of exposure, cavernous sinus venous thrombosis, and pseudotumor cerebri. There is no neck stiffness or fever to suggest meningitis. There was no evidence of carbon monoxide exposure. There is not a history of hypercoagulability or cranial nerve deficits to suggest cavernous venous thrombosis. The vision is normal and the duration is not long enough to consider pseudotumor cerebri. There was recently a head CT and traumatic etiology like subdural hematoma, epidural hematoma, skull fracture, or other intracranial injury is unlikely. The onset was gradual and it is not the worst headache ever making subarachnoid hemorrhage less likely. I will evaluate with labs, CT of the sinuses given the sinus pressure and pain with percussion over the maxillary sinuses, and reevaluate after treatment. Definitive disposition and diagnosis as appropriate pending reevaluation and review of above. headache Pain Score (Numeric/FACES): 8 - Related Data Allergies Allergy/AdvReac Type Severity Reaction Status Date / Time rosuvastatin [From Crestor] Allergy Muscle Verified 08/27/20 15:30 Aches Sulfa (Sulfonamide Allergy pain in Verified 08/27/20 15:30 Antibiotics) lower extremities Home Meds: Home Meds Levothyroxine Sodium [Synthroid] 75 mcg PO DAILY 09/22/18 [History] Losartan Potassium 50 mg PO DAILY 09/22/18 [History] Simvastatin [Zocor] 40 mg PO BEDTIME 09/22/18 [History] glipiZIDE [Glipizide ER] 5 mg PO DAILY 09/22/18 [History] metFORMIN HCl [Metformin HCl] 1,000 mg PO BID 09/22/18 [History] Insulin Degludec [Tresiba] 24 unit SQ BEDTIME 03/17/19 [History] Aspirin 81 mg PO DAILY #30 tab.chew 03/18/19 [Rx] Amoxicillin/Clavulanate K [Augmentin 875-125 MG] 1 tab PO BID 7 Days #14 tablet 08/27/20 [Rx] DULoxetine HCl [Duloxetine HCl] 60 mg PO BID 08/27/20 [History] Empagliflozin [Jardiance] 25 mg PO DAILY 08/27/20 [History] Lactobacillus 3/Fos/Pantethine [Probiotic & Acidophilus] 1 each PO BID 30 Days #60 capsule 08/27/20 [Rx] Oxymetazoline HCl [Afrin] 2 spray NS BEDTIME #1 spray 08/27/20 [Rx] Promethazine [Phenergan] 25 mg PO Q8H PRN #8 tab 08/27/20 [Rx] Past Medical History HEENT History: Reports: Other (See Below) Other HEENT History: wears reading glasses Cardiovascular History: Reports: High Cholesterol, Hypertension Gastrointestinal History: Reports: Colon Polyp, GERD Other Gastrointestinal History: reflux in the past Genitourinary History: Reports: None [employer] History: Reports: Musculoskeletal History: Reports: Arthritis, Back Pain, Chronic Neurological History: Reports: None Psychiatric History: Reports: Depression Endocrine/Metabolic History: Reports: Diabetes, Type II, Hypothyroidism, Obesity/BMI 30+ Oncologic (Cancer) History: Reports: Uterine - Infectious Disease History Infectious Disease History: Reports: Chicken Pox, Measles, Mumps - Past Surgical History Head Surgeries/Procedures: Reports: None HEENT Surgical History: Reports: Tonsillectomy Cardiovascular Surgical History: Reports: None GI Surgical History: Reports: Appendectomy, Cholecystectomy, Colonoscopy Female Surgical History: Reports: Hysterectomy, Salpingo-Oophorectomy Other Female Surgeries/Procedures: total abd hysterectomy with lymph node disection, uterine ca 2013 Endocrine Surgical History: Reports: None Neurological Surgical History: Reports: Lumbar Spine Other Neurological Surgeries/Procedures: hx back surgery Musculoskeletal Surgical History: Reports: Other (See Below) Other Musculoskeletal Surgeries/Procedures:: back surgery Social & Family History - Family History Family Medical History: Noncontributory - Caffeine Use Caffeine Use: Reports: Coffee ED ROS GENERAL - Review of Systems Review Of Systems: See Below (noted) ED EXAM, NEURO - Physical Exam Exam: See Below (noted) #1 Interpretation EKG Interpretation Comments: 1631 12 lead EKG interpretation Obtained: August 27, 2020 at 1559 Rhythm: Sinus Rate: 80 [place]: Normal Intervals: Normal ST/T Segments: No acute ischemic changes Interpretation: Sinus Rhythm Course - Vital Signs Last Recorded V/S: Last Vital Signs Temp 95.8 F L 08/27/20 15:18 Pulse 106 H 08/27/20 15:18 Resp 20 08/27/20 15:18 BP 162/81 H 08/27/20 15:18 Pulse Ox 98 08/27/20 15:18 - Orders/Labs/Meds Orders: Active Orders 24 hr Category Date Time Status EKG 12 Lead [EKG Documentation Completion] [RC] STAT Care 08/27/20 15:36 Active Labs: Laboratory Tests 08/27/20 08/27/20 08/27/20 Range/Units 15:45 15:45 15:45 WBC 7.39 (4.0-11.0) K/uL RBC 5.19 (4.30-5.90) M/uL Hgb 16.1 H (12.0-16.0) g/dL Hct 49.5 H (36.0-46.0) % MCV 95.4 (80.0-98.0) fL MCH 31.0 (27.0-32.0) pg MCHC 32.5 (31.0-37.0) g/dL RDW Std Deviation 42.7 (28.0-62.0) fl RDW Coeff of Justice 12 (11.0-15.0) % Plt Count 277 (150-400) K/uL MPV 10.70 (7.40-12.00) fL Neut % (Auto) 59.0 (48.0-80.0) % Lymph % (Auto) 33.3 (16.0-40.0) % [place] % (Auto) 6.2 (0.0-15.0) % Eos % (Auto) 1.1 (0.0-7.0) % Baso % (Auto) 0.4 (0.0-1.5) % Neut # (Auto) 4.4 (1.4-5.7) K/uL Lymph # (Auto) 2.5 H (0.6-2.4) K/uL [place] # (Auto) 0.5 (0.0-0.8) K/uL Eos # (Auto) 0.1 (0.0-0.7) K/uL Baso # (Auto) 0.0 (0.0-0.1) K/uL Nucleated RBC % 0.0 /100WBC Nucleated RBCs # 0 K/uL VBG pH 7.40 (7.31-7.41) VBG pCO2 41 (35-45) mmHG VBG pO2 61 H (30-40) mmHG VBG HCO3 26 (22-30) mEq/L VBG Total CO2 22 L (41-51) mmol/L VBG Base Excess 0.5 (-3.0-3.0) Lactate (0.20-2.00) mmol/L Sodium 137 (136-145) mmol/L Potassium 3.9 (3.5-5.1) mmol/L Chloride 103 (98-107) mmol/L Carbon Dioxide 24.3 (21.0-32.0) mmol/L BUN 19 H (7.0-18.0) mg/dL Creatinine 1.0 (0.6-1.0) mg/dL Est Cr Clr Drug Dosing 51.30 mL/min Estimated GFR (MDRD) 54.5 ml/min Glucose 130 H (74-106) mg/dL Calcium 8.7 (8.5-10.1) mg/dL Magnesium 1.9 (1.8-2.4) mg/dL Total Bilirubin 0.9 (0.2-1.0) mg/dL AST 24 (15-37) IU/L ALT 36 (14-63) IU/L Alkaline Phosphatase 106 (46-116) U/L Troponin I < 0.050 (0.000-0.056) ng/mL C-Reactive Protein < 0.20 (0.00-0.90) mg/dL Total Protein 7.2 (6.4-8.2) g/dL Albumin 3.7 (3.4-5.0) g/dL Globulin 3.5 (2.6-4.0) g/dL Albumin/Globulin Ratio 1.1 (0.9-1.6) Urine Color Urine Appearance Urine pH (5.0-8.0) Ur Specific [place] (1.001-1.035) Urine Protein (NEGATIVE) mg/dL Urine Glucose (UA) (NEGATIVE) mg/dL Urine Ketones (NEGATIVE) mg/dL Urine Occult Blood (NEGATIVE) Urine Nitrite (NEGATIVE) Urine Bilirubin (NEGATIVE) Urine Urobilinogen (<2.0) EU/dL Ur Leukocyte Esterase (NEGATIVE) 08/27/20 08/27/20 Range/Units 15:45 16:03 WBC (4.0-11.0) K/uL RBC (4.30-5.90) M/uL Hgb (12.0-16.0) g/dL Hct (36.0-46.0) % MCV (80.0-98.0) fL MCH (27.0-32.0) pg MCHC (31.0-37.0) g/dL RDW Std Deviation (28.0-62.0) fl RDW Coeff of Justice (11.0-15.0) % Plt Count (150-400) K/uL MPV (7.40-12.00) fL Neut % (Auto) (48.0-80.0) % Lymph % (Auto) (16.0-40.0) % [place] % (Auto) (0.0-15.0) % Eos % (Auto) (0.0-7.0) % Baso % (Auto) (0.0-1.5) % Neut # (Auto) (1.4-5.7) K/uL Lymph # (Auto) (0.6-2.4) K/uL [place] # (Auto) (0.0-0.8) K/uL Eos # (Auto) (0.0-0.7) K/uL Baso # (Auto) (0.0-0.1) K/uL Nucleated RBC % /100WBC Nucleated RBCs # K/uL VBG pH (7.31-7.41) VBG pCO2 (35-45) mmHG VBG pO2 (30-40) mmHG VBG HCO3 (22-30) mEq/L VBG Total CO2 (41-51) mmol/L VBG Base Excess (-3.0-3.0) Lactate 1.9 (0.20-2.00) mmol/L Sodium (136-145) mmol/L Potassium (3.5-5.1) mmol/L Chloride (98-107) mmol/L Carbon Dioxide (21.0-32.0) mmol/L BUN (7.0-18.0) mg/dL Creatinine (0.6-1.0) mg/dL Est Cr Clr Drug Dosing mL/min Estimated GFR (MDRD) ml/min Glucose (74-106) mg/dL Calcium (8.5-10.1) mg/dL Magnesium (1.8-2.4) mg/dL Total Bilirubin (0.2-1.0) mg/dL AST (15-37) IU/L ALT (14-63) IU/L Alkaline Phosphatase (46-116) U/L Troponin I (0.000-0.056) ng/mL C-Reactive Protein (0.00-0.90) mg/dL Total Protein (6.4-8.2) g/dL Albumin (3.4-5.0) g/dL Globulin (2.6-4.0) g/dL Albumin/Globulin Ratio (0.9-1.6) Urine Color YELLOW Urine Appearance CLEAR Urine pH 6.0 (5.0-8.0) Ur Specific [place] 1.025 (1.001-1.035) Urine Protein NEGATIVE (NEGATIVE) mg/dL Urine Glucose (UA) 500 H (NEGATIVE) mg/dL Urine Ketones 15 H (NEGATIVE) mg/dL Urine Occult Blood NEGATIVE (NEGATIVE) Urine Nitrite NEGATIVE (NEGATIVE) Urine Bilirubin NEGATIVE (NEGATIVE) Urine Urobilinogen 0.2 (<2.0) EU/dL Ur Leukocyte Esterase NEGATIVE (NEGATIVE) Meds: Medications Discontinued Medications Generic Name Dose Route Start Last Admin Trade Name Freq PRN Reason Stop Dose Admin Haloperidol Lactate 2.5 mg 08/27/20 16:59 Haldol IM 08/27/20 17:00 ONETIME ONE Lactated Ringer's 1,000 mls @ 1,000 mls/hr 08/27/20 15:37 08/27/20 15:48 Ringers, Lactated IV 08/27/20 16:36 1,000 mls/hr .BOLUS ONE Administration Methylprednisolone Sodium Succinate 125 mg 08/27/20 15:37 08/27/20 15:48 Solu-Medrol IVPUSH 08/27/20 15:38 125 mg ONETIME ONE Administration Prochlorperazine Edisylate 10 mg 08/27/20 15:37 08/27/20 15:48 Compazine IVPUSH 08/27/20 15:38 10 mg ONETIME ONE Administration - Re-Assessments/Exams Free Text/Narrative Re-Assessment/Exam: 08/27/20 17:[address] of the sinuses shows mild sinusitis. Given the patient is not improving with greater than 2 weeks of symptoms we will start her on medications for her sinus infection. This will include Afrin nasal spray, antibiotics, and follow-up with her doctor. We will prescribe Augmentin. My diagnostic impression: 1. Sinusitis (greater than 10 days of symptoms with CT evidence of disease) 2. Headache 3. History of diabetes mellitus Departure - Departure Time of Disposition: 17:09 Disposition: Home, Self-Care 01 Clinical Impression: Sinusitis, Dehydration - Discharge Information *PRESCRIPTION DRUG MONITORING PROGRAM REVIEWED*: Not Applicable *COPY OF PRESCRIPTION DRUG MONITORING REPORT IN PATIENT MK: Not Applicable Instructions: Sinusitis, Adult, [id number], Dehydration, Adult, [id number] Referrals: PCP,None [Primary Care Provider] - Forms: ED Department Discharge Additional Instructions: The following information is given to patients seen in the emergency department who are being discharged to home. This information is to outline your options for follow-up care. We provide all patients seen in our emergency department with a follow-up referral. The need for follow-up, as well as the timing and circumstances, are variable depending upon the specifics of your emergency department visit. If you don't have a primary care physician on staff, we will provide you with a referral. We always advise you to contact your personal physician following an emergency department visit to inform them of the circumstance of the visit and for follow-up with them and/or the need for any referrals to a consulting specialist. The emergency department will also refer you to a specialist when appropriate. This referral assures that you have the opportunity for follow-up care with a specialist. All of these measure are taken in an effort to provide you with optimal care, which includes your follow-up. Thank you for coming to the [facility] urgency department for your care today. It was Dr. Whitaker's pleasure to take care of you. [facility] - Primary Care [address] [place] [id number] scan shows that you have sinusitis/sinus disease. We will prescribe you Augmentin. I will also prescribe Afrin nasal spray to help shrink the nasal mucosa tissues. This should help with your pain. We will also give you medication for your headache. Please return if you have worsening, fever, or any other concerns. Under all circumstances we always encourage you to contact your private physician who remains a resource for coordinating your care. When calling for follow-up care, please make the office aware that this follow-up is from your recent emergency room visit. If for any reason you are refused follow-up, please contact the [facility] Emergency Department at and asked to speak to the emergency department charge nurse. Sepsis Event Note (ED) - Evaluation Sepsis Screening Result: No Definite Risk - Focused Exam Vital Signs: Vital Signs Temp Pulse Resp BP Pulse Ox 08/27/20 15:18 95.8 F L 106 H 20 162/81 H 98 - My Orders Last 24 Hours: My Active Orders 08/27/20 15:36 EKG 12 Lead [EKG Documentation Completion] [RC] STAT - Assessment/Plan Last 24 Hours: My Active Orders 08/27/20 15:36 EKG 12 Lead [EKG Documentation Completion] [RC] STAT
--- NOTE | 2020-08-27 16:47 | CT ---
INDICATION: Sinus pain, diabetes, and headache. COMPARISON: None available. Correlation is made with CT of the brain dated 08/23/2020. TECHNIQUE: CT of the sinuses without contrast. FINDINGS: Mild mucosal thickening in the left maxillary sinus. Minimal mucosal thickening in the right maxillary sinus. The frontal sinuses, ethmoid air cells, and sphenoid sinuses are patent. The mastoid air cells are patent. No fluid in the middle or inner ear. The nasal septum is deviated slightly to the left. The OMC is patent bilaterally. The retro antral fat is normal bilaterally. No osseous destruction. IMPRESSION: Mild sinus disease in the maxillary sinuses. Please note that all CT scans at this facility use dose modulation, iterative reconstruction, and/or weight-based dosing when appropriate to reduce radiation dose to as low as reasonably achievable. Dictated by Chinedu Brenner MD @ Aug 27 2020 4:39PM (Electronically Signed)
--- NOTE | 2020-08-27 16:57 | CR ---
INDICATION: Atypical chest pain. TECHNIQUE: Chest radiograph 1 view COMPARISON: None FINDINGS: Cardiovascular and mediastinum: The heart silhouette is normal in size and morphology. The mediastinum is normal in appearance. Lungs and pleural spaces: Both lungs are unremarkable in appearance. No sign of pleural effusion seen. No pneumothorax is identified. Bones and soft tissues: No significant findings. IMPRESSION: 1. No acute cardiopulmonary disease is seen. Dictated by Sawyer Tamez MD @ Aug 27 2020 4:54PM Signed by Dr. Sawyer Tamez @ Aug 27 2020 4:55PM
[2020-08-27] MEDS ORDERED: Haloperidol Lactate 5 MG/ML SDV IM ONE (16:59)
[2020-08-27] MEDS ORDERED: Amoxicillin/Clavulanate K 875-125 MG Tab PO ONE (17:16)
== END 2020-08-27 17:47 | disposition home or self-care (01) ==
LOC: MW.ED 15:10
DX: J32.9 Chronic sinusitis, unspecified (principal); E86.0 Dehydration; I10 Essential (primary) hypertension; E78.00 Pure hypercholesterolemia, unspecified; K21.9 Gastro-esophageal reflux disease without esophagitis; E11.9 Type 2 diabetes mellitus without complications; E03.9 Hypothyroidism, unspecified; E66.9 Obesity, unspecified; F32.9 Major depressive disorder, single episode, unspecified; Z88.2 Allergy status to sulfonamides; Z88.8 Allergy status to other drugs, medicaments and biological substances; Z79.899 Other long term (current) drug therapy; Z79.4 Long term (current) use of insulin; Z79.82 Long term (current) use of aspirin; Z90.710 Acquired absence of both cervix and uterus; Z90.49 Acquired absence of other specified parts of digestive tract; Z68.33 Body mass index [BMI] 33.0-33.9, adult
CPT/HCPCS: 36415; 70486; 71045; 80053; 81003; 82803; 83605; 83735; 84484; 85025; 86140; 93005; 96372; 96374; 96375; 99284; J0780; J1630; J2930; J7120; 93010

== ENCOUNTER 2024-04-13 06:23 | Day surgery (SDC) | payer MEDICARE, BC ==
[~2024-04-13 06:23] MED LIST: Sodium Chloride 0.9% 10 ML Syringe FLUSH PRN; Sodium Chloride 0.9% 2.5 ML Syringe FLUSH PRN; Sodium Chloride 0.9% 20 ML SDV IV PRN
[2024-04-13] MEDS: Lactated Ringers 1,000 ML IV SCH (06:59)
[2024-04-13] MEDS ORDERED: propofoL 50 ML ONE ×2 (07:33→08:48)
[2024-04-13] MEDS ORDERED: Water For Injection, Sterile 20 ML ONE (07:38)
== END 2024-04-13 09:37 | disposition home or self-care (01) ==
LOC: MW.SDS 06:23
PROVIDERS: ATTEND Surgery
DX: D12.3 Benign neoplasm of transverse colon (principal); D12.5 Benign neoplasm of sigmoid colon; K57.30 Diverticulosis of large intestine without perforation or abscess without bleeding; E11.9 Type 2 diabetes mellitus without complications; K46.9 Unspecified abdominal hernia without obstruction or gangrene; E78.5 Hyperlipidemia, unspecified; I10 Essential (primary) hypertension; E03.9 Hypothyroidism, unspecified; G47.00 Insomnia, unspecified; Z88.8 Allergy status to other drugs, medicaments and biological substances; Z88.2 Allergy status to sulfonamides; Z79.899 Other long term (current) drug therapy; Z79.84 Long term (current) use of oral hypoglycemic drugs; Z79.890 Hormone replacement therapy; Z86.010 Personal history of colon polyps
CPT/HCPCS: 45380; 45385; 88305; J2704; J7120; 00811; 99100; J3490